=== PATIENT | male | born 1975 | race Caucasian/White ===

== ENCOUNTER 2020-09-20 18:00 | Emergency (ER) | payer OTHER ==
[~2020-09-20] VITALS: Ht 190.5 cm; Wt 102.1 kg
[2020-09-20] MEDS ORDERED: LOSARTAN POTASS50 MG PO (18:14)
[2020-09-20] MEDS ORDERED: FENOFIBRIC ACI105 MG PO (18:14)
[2020-09-20] MEDS ORDERED: VITAMIN C500 M6 PO (18:14)
== END 2020-09-20 23:52 | disposition home or self-care (01) ==
LOC: ER 18:00
DX: U07.1 COVID-19 (principal); R06.02 Shortness of breath

== ENCOUNTER 2022-06-29 16:14 | Emergency (ER) | payer OTHER | END 2022-06-29 20:22 | disposition home or self-care (01) | LOC: ER 16:14 | DX: T61.11XA Scombroid fish poisoning, accidental (unintentional), initial encounter (principal) ==